=== PATIENT | female | born 1955 | race Caucasian/White ===

== ENCOUNTER → 2017-04-16 | Outpatient (REF) | payer OTHER ==
[2017-04-16 17:46] LABS: BASO % 0.6 % (0.0-1.0); EOS # 0.1 10^3/uL (0.0-0.50); EOS % 2.1 % (0.0-3.0); IMMATURE GRANULOCYTE % 0.3 % (0-0); LYMPH # 1.7 10^3/uL (1.5-4.5); LYMPH % 25.6 % (24.0-44.0); MEAN CORPUSCULAR HEMOGLOBIN 26.9 pg (27.0-33.0); MEAN CORPUSCULAR HGB CONC 33.2 g/dl (32.0-36.5); MEAN CORPUSCULAR VOLUME 81.1 fl (80.0-96.0); MONO # 0.5 10^3/uL (0.0-0.8); MONO % 7.4 % (0.0-5.0); NEUTROPHILS # 4.2 10^3/uL (1.8-7.7); PLATELET COUNT, AUTOMATED 262 10^3/uL (150-450); RED CELL DISTRIBUTION WIDTH 13.5 % (11.5-14.5); WHITE BLOOD COUNT 6.5 10^3/uL (4.0-10.0)
[2017-04-16 19:24] LABS: ALBUMIN 3.5 GM/DL (3.2-5.2); ALBUMIN/GLOBULIN RATIO 1.09 (1.00-1.93); ALKALINE PHOSPHATASE 108 U/L (45-117); ALT/SGPT 23 U/L (12-78); ANION GAP 7 MEQ/L (8-16); AST/SGOT 16 U/L (15-37); BILIRUBIN,TOTAL 0.5 MG/DL (0.2-1.0); BLOOD UREA NITROGEN 25 MG/DL (7-18); CALCIUM LEVEL 8.6 MG/DL (8.5-10.1); CARBON DIOXIDE LEVEL 27 MEQ/L (21-32); CHLORIDE LEVEL 108 MEQ/L (98-107); CHOLESTEROL LEVEL 204 MG/DL (<200); CREATININE FOR GFR 0.62 MG/DL (0.55-1.02); GLOMERULAR FILTRATION RATE > 60.0 (>51); GLUCOSE, FASTING 87 MG/DL (70-105); POTASSIUM SERUM 3.7 MEQ/L (3.5-5.1); SODIUM LEVEL 142 MEQ/L (136-145); TOTAL PROTEIN 6.7 GM/DL (6.4-8.2); TRIGLYCERIDES LEVEL 124 MG/DL (<150)
== END ==
LOC: M LAB REF 16:39
PROVIDERS: ATTEND Family Medicine
DX: Z98.84 Bariatric surgery status (principal); E78.4 Other hyperlipidemia; I10 Essential (primary) hypertension; Z00.00 Encounter for general adult medical examination without abnormal findings; E03.9 Hypothyroidism, unspecified

== ENCOUNTER 2019-07-01 10:51 | Day surgery (SDC) | payer BC, OTHER ==
[~2019-07-01] VITALS: Ht 157.5 cm; Wt 75.3 kg
[~2019-07-01 10:51] MED LIST: AMLO5TAB6 PO; ASPI81TA85 PO; CAND16TA2 PO; LEVO175T2 PO; MONT10TA2 PO; MULT1CAP2 PO; NS 1,000 ML IV ONE
[2019-07-01] MEDS ORDERED: LIDOCAINE 2% INJ 100 MG/5 ML SDV (FOR ANES.) As Ordered ONE (11:07)
[2019-07-01] MEDS ORDERED: propofoL 200 MG/20 ML VIAL As Ordered ONE (11:32)
--- NOTE | 2019-07-01 12:37 | ROOR ---
Patient Name: Nicci Paul Procedure Date: 07/01/2019 12:19 PM Date of : 1955 Age: 63 Room: [facility] Gender: Female Note Status: Finalized Procedure: Colonoscopy Indications: High risk colon cancer surveillance: Personal history of colonic polyps Providers: Oc Medrano Jr, MD Referring MD: Carmen Vela DO Requesting Provider: Medicines: Propofol per Anesthesia Complications: No immediate complications. Procedure: Pre-Anesthesia Assessment: - Prior to the procedure, a History and Physical was performed, and patient medications and allergies were reviewed. The patient is competent. The risks and benefits of the procedure and the sedation options and risks were discussed with the patient. All questions were answered and informed consent was obtained. Patient identification and proposed procedure were verified by the physician and the nurse in the pre-procedure area and in the procedure room. Mental Status Examination: alert and oriented. Airway Examination: normal oropharyngeal airway and neck mobility. Respiratory Examination: clear to auscultation. CV Examination: normal. ASA Grade Assessment: II - A patient with mild systemic disease. After reviewing the risks and benefits, the patient was deemed in satisfactory condition to undergo the procedure. The anesthesia plan was to use moderate sedation / analgesia (conscious sedation). Immediately prior to administration of medications, the patient was re-assessed for adequacy to receive sedatives. The heart rate, respiratory rate, oxygen saturations, blood pressure, adequacy of pulmonary ventilation, and response to care were monitored throughout the procedure. The physical status of the patient was re-assessed after the procedure. The Colonoscope was introduced through the anus and advanced to the cecum, identified by appendiceal orifice and ileocecal valve. The colonoscopy was performed without difficulty. The patient tolerated the procedure well. The quality of the bowel preparation was adequate. Findings: The rectum, recto-sigmoid colon, cecum, appendiceal orifice and ileocecal valve appeared normal. Multiple small and large-mouthed diverticula were found in the descending colon, transverse colon and ascending colon. Many diverticula were found in the sigmoid colon. Impression: - The rectum, recto-sigmoid colon, cecum, appendiceal orifice and ileocecal valve are normal. - Diverticulosis in the descending colon, in the transverse colon and in the ascending colon. - Diverticulosis in the sigmoid colon. - No specimens collected. Recommendation: - Discharge patient to home (ambulatory). - Repeat colonoscopy in 5 years for surveillance. Oc Medrano MD Oc Medrano Jr, MD 07/01/2019 12:37:31 PM Electronically signed by Oc Medrano Jr, MD Number of Addenda: 0 Note Initiated On: 07/01/2019 12:19 PM Estimated Blood Loss: Estimated blood loss: none.
[2019-07-01 13:14] VITALS: BP 102/56
== END 2019-07-01 13:30 | disposition home or self-care (01) ==
LOC: M OPP 10:51
PROVIDERS: ATTEND Surgery
DX: Z86.010 Personal history of colon polyps (principal); K57.30 Diverticulosis of large intestine without perforation or abscess without bleeding; I10 Essential (primary) hypertension; E03.9 Hypothyroidism, unspecified; Z79.82 Long term (current) use of aspirin; Z79.899 Other long term (current) drug therapy; Z98.84 Bariatric surgery status

== ENCOUNTER 2025-03-08 06:53 | Day surgery (SDC) | payer MEDICARE, BC ==
[~2025-03-08] VITALS: Ht 160 cm; Wt 80.6 kg
[~2025-03-08 06:53] MED LIST changes: +AMLO1TAB24 PO; -AMLO5TAB6 PO; -ASPI81TA85 PO; +ASPI81TA86 PO; +ECOT81TA5 PO; -MONT10TA2 PO; +MONT10TA97 PO; -NS 1,000 ML IV ONE; +VITA1CAP25 PO; +VITA500C22 PO
[2025-03-08 07:50] VITALS: TEMP 97.2
[2025-03-08 08:10] VITALS: BP 121/70; O2SAT 98
== END 2025-03-08 08:15 | disposition home or self-care (01) ==
LOC: M OPP 06:53
PROVIDERS: ATTEND Surgery
DX: Z12.11 Encounter for screening for malignant neoplasm of colon (principal); D12.6 Benign neoplasm of colon, unspecified; K57.30 Diverticulosis of large intestine without perforation or abscess without bleeding; Z79.82 Long term (current) use of aspirin; Z79.899 Other long term (current) drug therapy; Z98.84 Bariatric surgery status